=== PATIENT | female | born 2000 | race Caucasian/White ===

== ENCOUNTER → 2020-09-10 14:27 | Outpatient (BNVA) | payer OTHER, SELFPAY | PROVIDERS: Visit Provider Nurse Practitioner Family | DX: Z11.59 Encounter for screening for other viral diseases (principal); Z20.828 Contact with and (suspected) exposure to other viral communicable diseases; J06.9 Acute upper respiratory infection, unspecified | CPT/HCPCS: 87635 ==

== ENCOUNTER 2021-01-25 01:20 | Emergency (ER) | payer SELFPAY ==
[2021-01-25 01:36] VITALS: BP 128/70; PULSE 101; RESP 16; TEMP 36.7; O2SAT 97; BMI 26.5
--- NOTE | 2021-01-25 01:49 | W.ED.SKABFB ---
Documented by User: CHRISTOPHE Hurley 01/25/21 01:53 HPI - Skin/Abscess/Foreign Bdy General: Chief complaint: Skin/Abscess/Foreign Body Stated complaint: rashes Time Seen by Provider: 01/25/21 01:35 Source: patient Mode of arrival: ambulatory Limitations: no limitations History of Present Illness: HPI narrative: Patient is a 20-year-old female who presents to ED today with complaint of a rash that began today while at work. Patient tells me she initially began noticing a few lesions to her legs and states over a 3-hour period she noticed generalized lesions. She describes the lesions as burning and pruritic. She has never had any previous similar rashes. She denies any new work exposures. Patient works at [employer]. She denies any household, environmental, chemical exposures. No new medications. No recent illness. complaint: rash Onset (ago): hour(s) Tetanus up to date: yes Location: generalized Severity: mild Quality: burning and pruritic Pain Consistency: constant Relieving factors: none Exacerbating factors: none Context: none Associated symptoms: Reports no associated symptoms; Deny chills, fever(s), nausea or vomiting Treatments prior to arrival: none Review of Systems Const: Denies: fever(s), chills, body aches, fatigue or malaise Eyes: Denies: change in vision ENMT: Denies: odynophagia or nasal congestion Card: Denies: chest pain Resp: Denies: dyspnea GI: Denies: abdominal pain, nausea or vomiting Musc: Denies: neck pain, back pain or joint pain Skin/Breast: Reports: rash Neuro: Denies: headache(s), numbness in extremities, weakness in extremities or sensory changes Physical Exam Const: COMMON NORMALS: no acute distress, average body habitus, patient oriented x3, no limitations, healthy appearing, alert and well nourished Resp: COMMON NORMALS: normal respiratory effort and clear to auscultation bilaterally AUSCULTATION: clear to auscultation bilaterally Cardio: COMMON NORMALS: regular rate and regular rhythm RATE: regular rate RHYTHM: regular rhythm Extremity: GENERAL: Yes normal exam except as noted Neuro: COMMON NORMALS: patient oriented x3 SENSORIUM/ORIENTATION: Yes alert Skin: NARRATIVE SKIN EXAM: pt has several small 3-4mm erythematous flat lesions (some appearing in groups) to bilateral dorsums of feet, lower legs, anterior thighs, bilateral forearms and back; there is no scaling, demarcated edges, clearing, or drainage noted; pt reports pain with palpation of the lesions Course Vital Signs: Vital signs: Vital Signs Temperature 98.1 F 01/25/21 01:36 Pulse Rate 99 01/25/21 02:05 Respiratory Rate 17 01/25/21 02:05 Blood Pressure 128/70 01/25/21 01:36 Pulse Oximetry 100 01/25/21 02:05 MDM - Skin/Abscess/Foreign Bdy MDM Narrative: Medical decision making narrative: Care transferred to Dr. Pedro as my shift is ending. Discharge Plan Discharge Patient Disposition: Home Clinical Impression: Allergic reaction Qualifiers: Encounter type: initial encounter Qualified Code(s): T78.40XA - Allergy, unspecified, initial encounter Condition: Stable Prescriptions: New Medrol (Lobo) 4 mg tablets,dose pack See Rx Instructions .ROUTE .COMPLEX Qty: 21 RF: 0 Benadryl 25 mg capsule 25 mg PO Q6H PRN (Reason: allergic reaction) Qty: 30 RF: 0 Discharge Orders: Discharge ED (Routine); Ordered 01/25/21 Ordered By: Mannie Pedro Referrals: Pio Brumfield MD [Primary Care Provider] - Patient Instructions: Allergic Reaction, Urticaria (ED) Activity Restrictions/Additional Instructions: Return for worsening rash despite treatment, swelling of the lips or tongue, tightness in the throat, shortness of breath, other concerning symptoms. Coding Level of Care Code ED Client Application Support Engineer for Chg Fwd Exam Expanded Problem Focused Documented by User: Mannie Pedro DO 01/25/21 03:08 HPI - Skin/Abscess/Foreign Bdy General: Chief complaint: Skin/Abscess/Foreign Body Stated complaint: rashes Time Seen by Provider: 01/25/21 01:35 Course Vital Signs: Vital signs: Vital Signs Temperature 98.1 F 01/25/21 01:36 Pulse Rate 99 01/25/21 02:05 Respiratory Rate 17 01/25/21 02:05 Blood Pressure 128/70 01/25/21 01:36 Pulse Oximetry 100 01/25/21 02:05 MDM - Skin/Abscess/Foreign Bdy MDM Narrative: Medical decision making narrative: 20-year-old female checked out to me by Mrs. Osuna?LUIS Barros. I agree with her history, evaluation, and treatment. The rash is improving after IV Benadryl and Solu-Medrol. We will place this young lady on steroids for the next few days and a tapering dose and antihistamines. Discharge Plan Discharge Patient Disposition: Home Clinical Impression: Allergic reaction Qualifiers: Encounter type: initial encounter Qualified Code(s): T78.40XA - Allergy, unspecified, initial encounter Condition: Stable Prescriptions: New Medrol (Lobo) 4 mg tablets,dose pack See Rx Instructions .ROUTE .COMPLEX Qty: 21 RF: 0 Benadryl 25 mg capsule 25 mg PO Q6H PRN (Reason: allergic reaction) Qty: 30 RF: 0 Discharge Orders: Discharge ED (Routine); Ordered 01/25/21 Ordered By: Mannie Pedro Referrals: Pio Brumfield MD [Primary Care Provider] - Patient Instructions: Allergic Reaction, Urticaria (ED) Activity Restrictions/Additional Instructions: Return for worsening rash despite treatment, swelling of the lips or tongue, tightness in the throat, shortness of breath, other concerning symptoms. Coding Level of Care Code ED Client Application Support Engineer for Jarocho Bhatia Exam Expanded Problem Focused
[2021-01-25 02:05] VITALS: PULSE 99; RESP 17; O2SAT 100
[2021-01-25] MEDS: diphenhydrAMINE 50 mg/mL SDV 1mL IVP (02:05)
[2021-01-25] MEDS: famotidine 20 mg/2 mL INJ 40 MG IVP (02:06)
[2021-01-25 03:15] VITALS: BP 124/75; PULSE 78; RESP 16; TEMP 36.7; O2SAT 96
== END 2021-01-25 03:40 | disposition home or self-care (01) ==
PROVIDERS: Emergency Provider Physician Assistant
DX: T78.40XA Allergy, unspecified, initial encounter (principal)
CPT/HCPCS: 96374; 96375; 99283; J1200; J2930; J3490

== ENCOUNTER → 2021-07-12 16:06 | Outpatient (BNVA) | payer OTHER, SELFPAY | PROVIDERS: Visit Provider Nurse Practitioner Family | DX: Z20.822 Contact with and (suspected) exposure to COVID-19 (principal); Z20.828 Contact with and (suspected) exposure to other viral communicable diseases; J06.9 Acute upper respiratory infection, unspecified | CPT/HCPCS: 87426; 87635 ==

== ENCOUNTER 2021-07-13 23:02 | Emergency (ER) | payer SELFPAY ==
[2021-07-13 23:32] VITALS: BP 118/82; PULSE 103; RESP 20; TEMP 37.6; O2SAT 97; BMI 28.3
--- NOTE | 2021-07-13 23:53 | ED_ITS ---
HPI - Fever General: Chief Complaint: Fever Stated Complaint: Troat Swollen Sores in Mouth Time Seen by Provider: 07/13/21 23:13 History of Present Illness: HPI Narrative: Patient is a 21-year-old female comes to the ED with sore throat and fever. Symptoms started approximately 4 days ago. She was seen at urgent care yesterday and had a negative Covid test, negative mono negative strep. He discharge patient home with a prescription for Tessalon Perles. Patient says her sore throat is just gotten worse over the past 4 days. She is able to eat and drink but does cause some discomfort. She also reports having some nasal congestion and drainage and some left ear pain. She took some Tylenol about 2 days ago but has not taken any Motrin or Tylenol since. Denies any ear discharge, cough, shortness of breath, chest pain, nausea/vomiting, abdominal pain, bladder or bowel symptoms. Associated symptoms: Reports nasal congestion; Deny abdominal pain, flank pain, chills, chest pain, diarrhea, dysuria, headache(s), nausea or vomiting Review of Systems Const: Reports: fever(s); Denies: chills or fatigue Eyes: Denies: change in vision or eye discomfort ENMT: Reports: throat pain, enlarged tonsils, ear or mastoid pain (Left ear), nasal discharge and nasal congestion; Denies: odynophagia Card: Denies: chest pain, palpitations, edema, swelling of feet/ankles, dyspnea on exertion or orthopnea Resp: Denies: dyspnea, productive cough or non-productive cough GI: Denies: abdominal pain, nausea, vomiting, diarrhea, constipation or hematochezia : Denies: flank pain, dysuria or hematuria Musc: Denies: neck pain, back pain or extremity swelling Skin/Breast: Denies: rash or new lesions Neuro: Denies: headache(s), numbness in extremities or weakness in extremities PFSH ED PFSH: Social History Smoking and tobacco status: current every day smoker Alcohol intake: current Alcohol intake frequency: holidays/special occasions only Physical Exam Const: COMMON NORMALS: no acute distress, patient oriented x3, healthy appearing and alert GENERAL APPEARANCE: cooperative and comfortable HENMT: COMMON NORMALS: normocephalic, EAC's normal and TM's normal bilaterally (Patient had some fluid behind the TM bilaterally-no erythema noted) HEAD & SCALP: normocephalic EXTERNAL AUDITORY CANAL: EAC's normal TYMPANIC MEMBRANE: TM's normal bilaterally (Patient had some fluid behind the TM bilaterally-no erythema noted) MOUTH: Normal oral and palatal mucosa present THROAT: uvula midline, abnormal tonsil bilateral erythema, hypertrophy 3+ and other (tonsil stones present) and posterior oropharynx abnormal erythema Eye: COMMON NORMALS: Equal, round and reactive pupils present and conjunctivae normal CONJUNCTIVA: Yes conjunctivae normal PUPIL: Yes Equal, round and reactive pupils present Neck/C-Spine: COMMON NORMALS: supple GENERAL: Yes normal visual inspection Resp: COMMON NORMALS: normal respiratory effort, No retractions, No use of accessory muscles and clear to auscultation bilaterally AUSCULTATION: clear to auscultation bilaterally Cardio: COMMON NORMALS: regular rate, regular rhythm, S1 normal heart sound present, S2 normal heart sound present, No gallops present (Cardio), No clicks present (Cardio), No murmurs present (Cardio) and Peripheral pulses 2+ throughout RATE: regular rate RHYTHM: regular rhythm HEART SOUNDS: S1 normal heart sound present and S2 normal heart sound present PERIPHERAL PULSES: Peripheral pulses 2+ throughout GI: COMMON NORMALS: Normal to inspection, nondistended, normoactive bowel sounds present, Soft to palpation, non-tender and no masses PALPATION: Yes Soft to palpation : COMMON NORMALS: Yes no CVA tenderness BLADDER/KIDNEY EXAM: Yes no CVA tenderness Back/Pelvis: COMMON NORMALS: no CVA tenderness Extremity: COMMON NORMALS: normal to inspection Neuro: COMMON NORMALS: patient oriented x3 and moves all extremities SENSORIUM/ORIENTATION: Yes alert Skin: GENERAL SKIN EXAM: dry skin Course Vital Signs: Vital signs: Vital Signs Temperature 99.7 F H 07/13/21 23:32 Pulse Rate 103 H 07/13/21 23:32 Respiratory Rate 20 H 07/13/21 23:32 Blood Pressure 118/82 07/13/21 23:32 Pulse Oximetry 97 07/13/21 23:32 MDM - Fever MDM Narrative: Medical decision making narrative: Patient is a 21-year-old female comes to the ED with sore throat and fever. Patient appears nontoxic and is in no acute distress or pain. Vitals are stable. Exam shows some erythema and 3+ hypertrophy of the tonsils bilaterally. She also has some posterior oropharynx erythema as well. She was seen at urgent care earlier today and Covid test was negative, mono test negative and strep was negative. Here in the ED patient's strep was negative as well. Due to exam findings I am going to treat patient with an antibiotic to help with her acute pharyngitis. Patient discharged home with amoxicillin prescription. She was told to follow-up with her PCP in 7 to 10 days reevaluation. Return to ED precautions given. Patient stood agree with plan. Lab Data: Attestation: I reviewed the patient's lab results. Labs: Lab Results 07/14/21 Range/Units 00:29 Group A Strep Rapi d Negative (Negative) Discharge Plan Discharge Patient Disposition: Home Clinical Impression: Acute pharyngitis Qualifiers: Pharyngitis/tonsillitis etiology: unspecified etiology Qualified Code(s): J02.9 - Acute pharyngitis, unspecified Condition: Stable Prescriptions: New amoxicillin 500 mg capsule 500 mg PO BID 10 Days Qty: 20 RF: 0 No Action benzonatate [Tessalon Perles] 100 mg capsule 100 mg PO TID PRN (Reason: cough) Qty: 30 RF: 0 Discharge Orders: Discharge ED (Routine); Ordered 07/14/21 Ordered By: Tigre Lujan Discharge Diet: Regular Discharge Activity: Resume usual activity Patient Instructions: Pharyngitis (ED) Activity Restrictions/Additional Instructions: Follow-up with medical provider as directed in 7 to 10 days for reevaluation. Take [id number] Tylenol or Motrin for pain or fevers. Drink plenty of fluids and stay hydrated. Take medications as prescribed. Return to the ER or your medical provider if condition worsens. Please read and understand discharge instructions. Thank you for choosing [facility] for your healthcare needs today. Please realize this is an emergency room and that we are providing you with a medical screening exam and this may not be complete and all inclusive of all the testing and or work up that you may need to determine your ailment or severity o f your illness. It is very important that you follow up as instructed or that you return to the Emergency Department should you have concerns or if your condition changes or worsens in any way. Coding Level of Care Code ED Security Operations Specialist for Jarocho Fwwhitney Exam Comprehensive
[2021-07-14] MEDS: acetaminophen 500 mg Tablet 1000 MG PO (00:28)
[2021-07-14 00:46] LABS: Rapid Strep A Test Negative (Negative)
[2021-07-14] MEDS: amoxicillin 500 mg Capsule PO (01:09)
== END 2021-07-14 01:10 | disposition home or self-care (01) ==
PROVIDERS: Emergency Provider Physician Assistant
DX: J02.9 Acute pharyngitis, unspecified (principal); F17.210 Nicotine dependence, cigarettes, uncomplicated
CPT/HCPCS: 86308; 87070; 87081; 87880; 99283

== ENCOUNTER 2021-07-24 09:41 | Emergency (ER) | payer OTHER, SELFPAY ==
[2021-07-24] VITALS (7 sets, daily range): BP systolic 100–127; BP diastolic 56–71; PULSE 53–81; RESP 16–22; TEMP 36.8; O2SAT 97–100
--- NOTE | 2021-07-24 14:20 | W.ED.SOB ---
HPI - SOB/Dyspnea General: Chief Complaint: Shortness of Breath/Dyspnea Stated Complaint: COUGH, SOB Time Seen by Provider: 07/24/21 13:48 Source: patient and RN notes reviewed Mode of arrival: ambulatory Limitations: no limitations History of Present Illness: HPI Narrative: Patient is a 21-year-old female with a past medical history only of hypoglycemia who presents to the emergency department with complaints of fever, body aches, shortness of breath. Symptoms started yesterday. Her boyfriend was diagnosed with COVID-19 2 days ago and she also has a coworker that was diagnosed with Covid. She has some shortness of breath and some cough. MD elicited complaint: shortness of breath and cough Onset (ago): day(s) (1) Timing: constant Severity: moderate Exacerbating factors: nothing Relieving factors: nothing Associated symptoms: Reports cough, lightheadedness, myalgias and nausea; Deny abdominal pain, chest congestion, chest pain, diaphoresis, dizziness, extremity pain, fever(s), hemoptysis, orthopnea, palpitations, paresthesias, polydipsia, polyuria, rash, sense of impending doom, syncope or vomiting Treatment prior to arrival: none Review of Systems General: Reports: 10 or more systems reviewed and unremarkable except in HPI and below Const: Denies: fever(s) or diaphoresis Card: Reports: lightheadedness; Denies: chest pain, palpitations, syncope or orthopnea Resp: Denies: hemoptysis or chest congestion GI: Reports: nausea; Denies: abdominal pain or vomiting Musc: Denies: extremity pain Neuro: Denies: dizziness Endo: Denies: polyuria or polydipsia [facility] ED PFSH: Social History (Reviewed 07/24/21 @ 14:22 by Selvin Willams MD, [facility] [place]) Smoking and tobacco status: current every day smoker Alcohol intake: current Alcohol intake frequency: holidays/special occasions only Physical Exam Const: COMMON NORMALS: no acute distress, average body habitus, patient oriented x3, no limitations, healthy appearing, alert and well nourished HENMT: COMMON NORMALS: normocephalic, atraumatic and moist oral mucous membranes HEAD & SCALP: normocephalic and atraumatic Neck/C-Spine: COMMON NORMALS: no meningeal signs and no JVD Resp: COMMON NORMALS: normal respiratory effort, No retractions, No use of accessory muscles, clear to auscultation bilaterally and percussion normal AUSCULTATION: clear to auscultation bilaterally PERCUSSION: percussion normal Cardio: COMMON NORMALS: no JVD, regular rate, regular rhythm, S1 normal heart sound present, S2 normal heart sound present, No gallops present (Cardio), No clicks present (Cardio), No murmurs present (Cardio), No rub (Cardio) and Peripheral pulses 2+ throughout RATE: regular rate RHYTHM: regular rhythm HEART SOUNDS: S1 normal heart sound present and S2 normal heart sound present PERIPHERAL PULSES: Peripheral pulses 2+ throughout GI: COMMON NORMALS: Normal to inspection, nondistended, normoactive bowel sounds present, Soft to palpation, non-tender, No hepatosplenomegaly present, no masses and no bruits PALPATION: Yes Soft to palpation and Yes No hepatosplenomegaly present Extremity: COMMON NORMALS: normal to inspection, full ROM, capillary refill normal, no calf tenderness and no pedal edema Neuro: COMMON NORMALS: patient oriented x3 SENSORIUM/ORIENTATION: Yes alert MENINGEAL SIGNS: Yes no meningeal signs Skin: COMMON NORMALS: no rashes or lesions noted, no wounds, turgor normal, no jaundice, no petechiae and no mottling GENERAL SKIN EXAM: no rashes or lesions noted and turgor normal Course Reevaluation(s): Reevaluation #1: Discussed her lab and imaging findings with her. Unremarkable. Negative rapid Covid test. PCR test is pending and will be reported in a couple of days. We will discharge her home, however because of her symptoms and the fact that her boyfriend has Covid I am assuming that she has COVID-19. She is advised to self isolate for at least 10 days from symptom onset and with 24 hours fever free. She voiced understanding and is in agreement with the plan. Time: 17:41 Vital Signs: Vital signs: Vital Signs Temperature 98.3 F 07/24/21 11:15 Pulse Rate 63 07/24/21 17:55 Respiratory Rate 16 07/24/21 17:55 Blood Pressure 100/56 07/24/21 17:55 Pulse Oximetry 99 07/24/21 17:55 MDM - SOB/Dyspnea MDM Narrative: Medical decision making narrative: 21-year-old female patient who presents to the emergency department with complaints of fever, body aches, shortness of breath. Her boyfriend currently has COVID-19. Symptoms started about 3 days ago. Evaluation in the emergency department is unremarkable including a rapid Covid test. PCR testing still pending. She is discharged home with a pulse oximeter to monitor her oxygen saturations. She likely has Covid and she is advised to self isolate for at least 10 days. Medical Records: Attestation: I reviewed the patient's medical records. Lab Data: Attestation: I reviewed the patient's lab results. Labs: Lab Results 07/24/21 07/24/21 07/24/21 Range/Units 13:44 13:44 14:40 WBC 11.3 H (4.0-10.0) 10^3/ uL RBC 4.51 (4.1-5.3) 10^6/u L Hgb 13.7 (11.5-15.3) g/dL Hct 41.6 (37.0-47.0) % MCV 92.2 (81-99) fl MCH 30.4 (28.0-34.0) pg MCHC 32.9 (30.0-36.0) g/dL RDW 11.9 L (12.1-15.1) % Plt Count 250 (130-400) 10^3/c mm MPV 9.6 (7.4-10.4) fL Neut % (Auto) 74.2 % Lymph % (Auto) 19.2 % Benton % (Auto) 5.4 % Eos % (Auto) 0.5 % Baso % (Auto) 0.4 % Neut # (Auto) 8.37 H (1.8-7.7) 10^3/u L Lymph # (Auto) 2.2 (0.8-4.8) 10^3/u L Benton # (Auto) 0.6 (0.2-0.9) 10^3/u L Eos # (Auto) 0.1 (0.0-0.8) 10^3/u L Baso # (Auto) 0.0 (0.0-0.1) 10^3/u L Nucleated RBC % (a uto) 0 % Nucleated RBCs # 0.0 /100WBC Sodium (136-145) mmol/L Potassium (3.5-5.1) mmol/L Chloride (98-107) mmol/L Carbon Dioxide (22-29) mmol/L Anion Gap (5-19) BUN (6-20) mg/dL Creatinine (0.5-0.9) mg/dL GFR Calculation (90-130) mL/min Glucose (65-115) mg/dL Calculated Osmolal ity (285-295) mOsm/k g Calcium (8.5-10.5) mg/dL Total Bilirubin (0.15-1.2) mg/dL AST (0-32) U/L ALT (0-33) U/L Alkaline Phosphata se (35-105) IU/L C-Reactive Protein (0.0-4.9) mg/L Total Protein (6.6-8.7) g/dL Albumin (3.5-5.2) g/dL Globulin (1.3-4.6) g/dL Urine Color (Yellow) Urine Appearance (CLEAR) Urine pH (5-7) Ur Specific Gravit y (1.005-1.030) Urine Protein (Negative) Urine Glucose (UA) (Normal) Urine Ketones (Negative) Urine Blood (Negative) Urine Nitrate (Negative) Urine Bilirubin (Negative) Prot Sulfosalicyli c Acd (Negative) Urine Urobilinogen (Negative) mg/dL Ur Leukocyte Mary ase (Negative) Nasal/Oral COVID-1 9 PCR Cancelled SARS-CoV-2 Ag (Rap id) Negative (Negative) 07/24/21 07/24/21 Range/Units 14:40 15:30 WBC (4.0-10.0) 10^3/ uL RBC (4.1-5.3) 10^6/u L Hgb (11.5-15.3) g/dL Hct (37.0-47.0) % MCV (81-99) fl MCH (28.0-34.0) pg MCHC (30.0-36.0) g/dL RDW (12.1-15.1) % Plt Count (130-400) 10^3/c mm MPV (7.4-10.4) fL Neut % (Auto) % Lymph % (Auto) % Benton % (Auto) % Eos % (Auto) % Baso % (Auto) % Neut # (Auto) (1.8-7.7) 10^3/u L Lymph # (Auto) (0.8-4.8) 10^3/u L Benton # (Auto) (0.2-0.9) 10^3/u L Eos # (Auto) (0.0-0.8) 10^3/u L Baso # (Auto) (0.0-0.1) 10^3/u L Nucleated RBC % (a uto) % Nucleated RBCs # /100WBC Sodium 140 (136-145) mmol/L Potassium 3.8 (3.5-5.1) mmol/L Chloride 104 (98-107) mmol/L Carbon Dioxide 28 (22-29) mmol/L Anion Gap 11.8 (5-19) BUN 7 (6-20) mg/dL Creatinine 0.6 (0.5-0.9) mg/dL GFR Calculation 126.2 (90-130) mL/min Glucose 79 (65-115) mg/dL Calculated Osmolal ity 287 (285-295) mOsm/k g Calcium 8.8 (8.5-10.5) mg/dL Total Bilirubin 0.5 (0.15-1.2) mg/dL AST 16 (0-32) U/L ALT 21 (0-33) U/L Alkaline Phosphata se 73 (35-105) IU/L C-Reactive Protein 0.4 (0.0-4.9) mg/L Total Protein 6.9 (6.6-8.7) g/dL Albumin 4.3 (3.5-5.2) g/dL Globulin 2.6 (1.3-4.6) g/dL Urine Color Straw (Yellow) Urine Appearance Clear (CLEAR) Urine pH 9 H (5-7) Ur Specific Gravit y 1.010 (1.005-1.030) Urine Protein Neg (Negative) Urine Glucose (UA) Norm (Normal) Urine Ketones 1+ H (Negative) Urine Blood Neg (Negative) Urine Nitrate Negative (Negative) Urine Bilirubin Neg (Negative) Prot Sulfosalicyli c Acd Negative (Negative) Urine Urobilinogen Norm (Negative) mg/dL Ur Leukocyte Mary ase Negative (Negative) Nasal/Oral COVID-1 9 PCR SARS-CoV-2 Ag (Rap id) (Negative) Imaging Data^: CXR: Attestation: I personally reviewed and interpreted this imaging study as follows: Radiologist's impression: [address] [id number] ReportSigned Patient: Sloan Zayas #: [id number]: [id number]#:[id number]/Sex: 21 / FADM Date: 07/24/21Loc: ERRoom/Bed:Attending Dr: Ordering Provider/Ordering MD: Selvin Willams MD, [facility] [place] Date of Service: 07/24/21 Procedure(s): XR chest 1V portable [id number] Accession Number(s): [id number] Report Number: [id number] PROCEDURE INFORMATION: Exam: XR Chest Exam date and time: 07/24/2021 2:20 PM Age: 21 years old Clinical indication: Shortness of breath. TECHNIQUE: Imaging protocol: XR of the chest. Views: 1 view. COMPARISON: No relevant prior studies available. FINDINGS: Lungs: No pulmonary consolidation. Pleural spaces: No pleural effusion.; No pneumothorax. Heart/Mediastinum: The cardiac silhouette is unremarkable. No gross evidence of pneumomediastinum. Bones/joints: No gross fracture. XR/XR chest 1V portable [id number] IMPRESSION: No acute cardiopulmonary abnormality identified. Dictated By:Mercedes Carrionigned By:Mercedes Carrionigned Date/Time:07/24/21 1529DD/ 1527 Discharge Plan Discharge Patient Disposition: Home Clinical Impression: Acute viral syndrome, Exposure to severe acute respiratory syndrome coronavirus 2 (SARS-CoV-2) Condition: Stable Prescriptions: No Action No Known Home Medications RF: 0 Discharge Orders: Discharge ED (Routine); Ordered 07/24/21 Ordered By: Selvin Willams Discharge Diet: Usual diet Discharge Activity: Increase activity as tolerated Patient Instructions: Viral Syndrome (ED) Activity Restrictions/Additional Instructions: Return for any new or worsening symptoms. Follow-up with your primary care provider within 3 days. Follow-up via telemedicine. You need to self isolate for at least 10 days from when the symptoms started and at least 24 hours of being fever free. Check your oxygen saturation using the pulse oximeter frequently if you notice your oxygen levels drop below 90% and stays below 90% you need to return to be evaluated. You will be contacted with the results of your PCR Covid test. Coding Level of Care Code ED Autocad for Jarocho Fwd Exam Comprehensive
[2021-07-24 14:27] LABS: SARS Covid-2 Antigen Negative (Negative)
[2021-07-24 15:03] LABS: Basophils % 0.4 %; Eosinophils # 0.1 10^3/uL (0.0-0.8); Eosinophils % 0.5 %; Hematocrit 41.6 % (37.0-47.0); Hemoglobin 13.7 g/dL (11.5-15.3); Lymphocytes # 2.2 10^3/uL (0.8-4.8); Lymphocytes % 19.2 %; Mean Corpuscular HGB Conc 32.9 g/dL (30.0-36.0); Mean Corpuscular Hemoglobin 30.4 pg (28.0-34.0); Mean Corpuscular Volume 92.2 fl (81-99); Mean Platelet Volume 9.6 fL (7.4-10.4); Monocytes # 0.6 10^3/uL (0.2-0.9); Monocytes % 5.4 %; Neutrophils # 8.37 10^3/uL (1.8-7.7); Neutrophils % 74.2 %; Nucleated Red Blood Cells % 0 %; Platelet Count 250 10^3/cmm (130-400); Red Blood Count 4.51 10^6/uL (4.1-5.3); Red Cell Distribution Width 11.9 % (12.1-15.1); White Blood Count 11.3 10^3/uL (4.0-10.0)
[2021-07-24 15:31] LABS: Alanine Aminotransferase 21 U/L (0-33); Albumin Level 4.3 g/dL (3.5-5.2); Alkaline Phosphatase 73 IU/L (35-105); Anion Gap 11.8 (5-19); Aspartate Amino Transferase 16 U/L (0-32); Blood Urea Nitrogen 7 mg/dL (6-20); C Reactive Protein 0.4 mg/L (0.0-4.9); Calcium 8.8 mg/dL (8.5-10.5); Carbon Dioxide 28 mmol/L (22-29); Chloride 104 mmol/L (98-107); Globulin 2.6 g/dL (1.3-4.6); Glomerular Filtration Rate 126.2 mL/min (90-130); Glucose 79 mg/dL (65-115); Osmolality Calculated 287 mOsm/kg (285-295); Potassium 3.8 mmol/L (3.5-5.1); Sodium 140 mmol/L (136-145); Total Bilirubin 0.5 mg/dL (0.15-1.2); Total Protein 6.9 g/dL (6.6-8.7)
[2021-07-24 15:43] LABS: Add Urine Microscopic? NO; Charge for UA Resulting for Rev
[2021-07-24 16:08] LABS: Bilirubin Urine Neg (Negative); Blood Urine Neg (Negative); Glucose Urine UA Norm (Normal); Ketones Urine 1+ (Negative); Leukocyte Esterase Urine Negative (Negative); Nitrate Urine Negative (Negative); Protein Urine Neg (Negative); Urine Appearance Clear (CLEAR); Urine Color Straw (Yellow); Urobilinogen Urine Norm (Negative); pH Urine 9 (5-7)
[2021-07-24 17:04] LABS: Sulfosalicylic Acid Urine Negative (Negative)
[2021-07-25 17:52] LABS: Quest SARS-CoV-2 RNA NOT DETECTED (NOT DETECTED)
--- NOTE | 2021-07-26 09:01 | PC.NURSE ---
Patient notified of covid results at this time
== END 2021-07-24 17:57 | disposition home or self-care (01) ==
PROVIDERS: Emergency Medicine; Emergency Provider Family Medicine
DX: B34.9 Viral infection, unspecified (principal); Z20.822 Contact with and (suspected) exposure to COVID-19
CPT/HCPCS: 71045; 80053; 81003; 85025; 86140; 87426; 87635; 99283